=== PATIENT | female | born 2000 | race Caucasian/White ===

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

== ENCOUNTER 2018-01-19 20:14 | Emergency (ER) | payer OTHER ==
[~2018-01-19] VITALS: Wt 154.2 kg
[~2018-01-19 20:14] MED LIST changes: +FLUCONAZOLE100 MG PO
[2018-01-19 20:55] LABS: BILIRUBIN NEGATIVE (NEGATIVE); BLOOD NEGATIVE (NEGATIVE); CLARITY CLEAR (CLEAR); COLOR YELLOW (YELLOW); GLUCOSE NEGATIVE (NEGATIVE); KETONE TRACE (NEGATIVE); LEUKO ESTERASE NEGATIVE (NEGATIVE); NITRITE NEGATIVE (NEGATIVE); PH 5.5 (5.0-9.0); SPECIFIC GRAVITY 1.025 (1.005-1.030)
[2018-01-19 21:06] LABS: BACTERIA 2+; RBC 0-2 rbc/hpf (0-2)
== END 2018-01-19 22:20 | disposition home or self-care (01) ==
LOC: ED 20:14
PROVIDERS: Emergency Medicine
DX: N92.6 Irregular menstruation, unspecified (principal); N91.0 Primary amenorrhea; Z79.899 Other long term (current) drug therapy

== ENCOUNTER 2018-03-06 11:26 | Emergency (ER) | payer OTHER ==
[~2018-03-06] VITALS: Ht 167.6 cm; Wt 163.3 kg
[2018-03-06 11:53] LABS: BASO # 0.1 10*3/uL (0.0-0.1); EOS # 0.3 10*3/uL (0.0-0.4); EOS % 2.9 % (1.0-4.0); HEMATOCRIT 37.1 % (37.0-47.0); HEMOGLOBIN 11.7 g/dl (12.0-16.0); LYMPH # 2.3 10*3/uL (1.3-4.4); LYMPH % 25.9 % (27.0-41.0); MEAN CELL VOLUME 78.3 fl (81.0-99.0); MEAN CORPUSCULAR HGB 24.7 pg (27.0-31.0); MEAN CORPUSCULAR HGB CONC 31.5 g/dl (33.0-37.0); MONO # 0.5 10*3/uL (0.1-1.0); MONO % 5.2 % (3.0-9.0); NEUT # 5.9 10*3/uL (2.3-7.9); NEUT % 64.8 % (47.0-73.0); PLATELET COUNT AUTOMATED 292 10*3/uL (130-400); RED BLOOD COUNT 4.74 10*6/uL (4.10-5.10); RED CELL DISTRI WIDTH 14.5 % (0-14.5)
[2018-03-06 12:07] LABS: ALBUMIN 3.2 gm/dl (3.1-4.5); ALKALINE PHOSPHATASE 92 U/L (45-117); BUN 8 mg/dl (7-24); CHLORIDE 108 mmol/L (98-107); CREATININE 0.85 mg/dL (0.55-1.02); POTASSIUM 4.2 mmol/L (3.5-5.1); SGOT/AST 19 IU/L (3-35); SGPT/ALT 29 U/L (12-78); SODIUM 141 mmol/L (136-145)
[2018-03-06 12:09] LABS: ACETAMINOPHEN (TYLENOL) < 2.0 ug/ml (10-30); ETHYL ALCOHOL < 3.0 mg/dl (<3)
[2018-03-06 12:49] LABS: BILIRUBIN NEGATIVE (NEGATIVE); BLOOD TRACE-INTACT (NEGATIVE); CLARITY CLOUDY (CLEAR); COLOR YELLOW (YELLOW); GLUCOSE NEGATIVE (NEGATIVE); KETONE NEGATIVE (NEGATIVE); LEUKO ESTERASE 1+ (NEGATIVE); NITRITE POSITIVE (NEGATIVE); UROBILINOGEN 0.2 E.U./dl (0.2-1.0)
[2018-03-06 12:56] LABS: BACTERIA 3+; EPITHELIAL CELLS 21-30; MUCOUS 1+; WBC 21-30 wbc/hpf (0-5)
[2018-03-06 13:02] LABS: URINE AMPHETAMINES < 1000 (1000ng/ml); URINE BARBITURATES < 200 (200ng/ml); URINE BENZODIAZEPINES < 200 (200ng/ml); URINE CANNABINOIDS (THC) > 50 (50ng/ml); URINE COCAINE < 300 (300ng/ml); URINE METHADONE < 300 (300ng/ml); URINE OPIATES < 300 (300ng/ml)
[2018-03-06 13:09] LABS: URINE PHENCYCLIDINE < 25 (25ng/ml)
== END 2018-03-07 08:45 | disposition home health service (06) ==
LOC: ED 11:26
PROVIDERS: Nurse Practitioner Family
DX: R45.851 Suicidal ideations (principal); Z79.899 Other long term (current) drug therapy

== ENCOUNTER 2018-11-30 18:59 | Emergency (ER) | payer OTHER ==
[~2018-11-30] VITALS: Ht 170.1 cm; Wt 143.8 kg
[~2018-11-30 18:59] MED LIST changes: +DIFLUCAN150 MG PO; +ZITHROMAX250 MG PO
[2018-12-12] MEDS ORDERED: ZYRTEC10 MG PO (19:40)
[2018-12-12] MEDS ORDERED: ZITHROMAX250 MG PO (19:40)
[2018-12-12] MEDS ORDERED: FLONASE ALLERG9.9 ML NAS (19:40)
== END 2018-11-30 20:51 | disposition home or self-care (01) ==
LOC: ED 18:59
DX: R51 Headache (principal); H93.13 Tinnitus, bilateral; R53.83 Other fatigue; G40.909 Epilepsy, unspecified, not intractable, without status epilepticus; F17.200 Nicotine dependence, unspecified, uncomplicated; Z79.899 Other long term (current) drug therapy

== ENCOUNTER 2018-12-31 22:37 | Emergency (ER) | payer OTHER ==
[~2018-12-31] VITALS: Wt 143.8 kg
[~2018-12-31 22:37] MED LIST changes: +FLONASE ALLERG9.9 ML NAS; +ZYRTEC10 MG PO
[2018-12-31 23:08] LABS: BILIRUBIN NEGATIVE (NEGATIVE); BLOOD NEGATIVE (NEGATIVE); CLARITY SL CLOUDY (CLEAR); COLOR YELLOW (YELLOW); GLUCOSE NEGATIVE (NEGATIVE); KETONE NEGATIVE (NEGATIVE); LEUKO ESTERASE NEGATIVE (NEGATIVE); NITRITE NEGATIVE (NEGATIVE); SPECIFIC GRAVITY 1.025 (1.005-1.030); UROBILINOGEN 0.2 E.U./dl (0.2-1.0)
[2018-12-31 23:18] LABS: EPITHELIAL CELLS TNTC
== END 2019-01-01 00:02 | disposition home or self-care (01) ==
LOC: ED 22:37
PROVIDERS: Nurse Practitioner Family
DX: S93.402A Sprain of unspecified ligament of left ankle, initial encounter (principal); Z11.3 Encounter for screening for infections with a predominantly sexual mode of transmission; X50.1XXA Overexertion from prolonged static or awkward postures, initial encounter; Y93.89 Activity, other specified; Y92.89 Other specified places as the place of occurrence of the external cause; Y99.8 Other external cause status

== ENCOUNTER 2019-03-14 11:31 | Emergency (ER) | payer OTHER ==
[~2019-03-14] VITALS: Ht 167.6 cm; Wt 141.1 kg
[2019-03-14] MEDS ORDERED: ZITHROMAX250 MG PO (12:02)
== END 2019-03-14 12:05 | disposition home or self-care (01) ==
LOC: ED 11:31
DX: J02.9 Acute pharyngitis, unspecified (principal); R59.0 Localized enlarged lymph nodes; Z88.1 Allergy status to other antibiotic agents

== ENCOUNTER 2019-06-21 11:39 | Emergency (ER) | payer OTHER ==
[~2019-06-21] VITALS: Ht 170.1 cm; Wt 136.1 kg
[2019-06-21] MEDS ORDERED: IBUPROFEN600 MG PO (13:45)
== END 2019-06-21 13:46 | disposition home or self-care (01) ==
LOC: ED 11:39
DX: Z88.1 Allergy status to other antibiotic agents (principal); J06.9 Acute upper respiratory infection, unspecified

== ENCOUNTER 2019-07-15 07:44 | Emergency (ER) | payer OTHER ==
[~2019-07-15] VITALS: Ht 167.6 cm; Wt 137.4 kg
[~2019-07-15 07:44] MED LIST changes: +IBUPROFEN600 MG PO
== END 2019-07-15 08:30 | disposition home or self-care (01) ==
LOC: ED 07:44
DX: S21.219A Laceration without foreign body of unspecified back wall of thorax without penetration into thoracic cavity, initial encounter (principal); Z88.1 Allergy status to other antibiotic agents; W22.8XXA Striking against or struck by other objects, initial encounter; Y93.89 Activity, other specified; Y92.89 Other specified places as the place of occurrence of the external cause; Y99.8 Other external cause status

== ENCOUNTER 2019-09-21 18:12 | Emergency (ER) | payer OTHER ==
[~2019-09-21] VITALS: Ht 167.6 cm; Wt 131.5 kg
[~2019-09-21 18:12] MED LIST changes: +PYRIDIUM100 MG PO; +SEPTDS PO; +ZOFRAN4 MG PO
[2019-09-21 20:09] LABS: BILIRUBIN NEGATIVE (NEGATIVE); BLOOD NEGATIVE (NEGATIVE); CLARITY SL CLOUDY (CLEAR); COLOR YELLOW (YELLOW); GLUCOSE NEGATIVE (NEGATIVE); KETONE NEGATIVE (NEGATIVE); LEUKO ESTERASE NEGATIVE (NEGATIVE); NITRITE NEGATIVE (NEGATIVE); UROBILINOGEN 0.2 E.U./dl (0.2-1.0)
[2019-09-21 20:10] LABS: BACTERIA 1+
[2019-09-21] MEDS ORDERED: PRENATAL TABLE1 EAC2 PO (20:54)
[2019-09-21] MEDS ORDERED: MACROBID100 M1 PO (20:54)
== END 2019-09-21 21:02 | disposition home or self-care (01) ==
LOC: ED 18:12
PROVIDERS: Nurse Practitioner Family
DX: O23.91 Unspecified genitourinary tract infection in pregnancy, first trimester (principal); B96.89 Other specified bacterial agents as the cause of diseases classified elsewhere; Z3A.01 Less than 8 weeks gestation of pregnancy; Z32.01 Encounter for pregnancy test, result positive; Z88.1 Allergy status to other antibiotic agents

== ENCOUNTER 2020-07-25 20:08 | Emergency (ER) | payer OTHER ==
[~2020-07-25] VITALS: Wt 117.9 kg
[~2020-07-25 20:08] MED LIST changes: +MACROBID100 M1 PO; +PRENATAL TABLE1 EAC2 PO
[2020-07-25] MEDS ORDERED: ANTIFUNGAL113 GM T (20:58)
[2020-07-25 21:32] LABS: BILIRUBIN Negative (Negative); BLOOD Negative (Negative); CLARITY Clear (Clear); COLOR Yellow (Yellow); GLUCOSE Negative (Negative); KETONE Trace (Negative); LEUKO ESTERASE 2+ (Negative); NITRITE Negative (Negative); PH 5.5 (4.5-8.0)
[2020-07-25 21:59] LABS: BACTERIA TRACE
[2020-07-25] MEDS ORDERED: CEPHALEXIN500 M1 PO (22:05)
== END 2020-07-25 22:45 | disposition home or self-care (01) ==
LOC: ED 20:08
PROVIDERS: Physician Assistant
DX: O98.811 Other maternal infectious and parasitic diseases complicating pregnancy, first trimester (principal); O26.891 Other specified pregnancy related conditions, first trimester; R82.71 Bacteriuria; F41.9 Anxiety disorder, unspecified; F32.9 Major depressive disorder, single episode, unspecified; Z79.899 Other long term (current) drug therapy; Z88.8 Allergy status to other drugs, medicaments and biological substances; Z3A.01 Less than 8 weeks gestation of pregnancy

== ENCOUNTER 2020-10-22 16:47 | Emergency (ER) | payer OTHER ==
[~2020-10-22] VITALS: Ht 167.6 cm; Wt 117.5 kg
[~2020-10-22 16:47] MED LIST changes: +ANTIFUNGAL113 GM T; +CEPHALEXIN500 M1 PO
== END 2020-10-22 18:34 | disposition left against medical advice (07) ==
LOC: ED 16:47
DX: R10.9 Unspecified abdominal pain (principal); Z53.21 Procedure and treatment not carried out due to patient leaving prior to being seen by health care provider

== ENCOUNTER → 2020-11-29 | Outpatient (CLI) | payer OTHER ==
[2020-11-29 11:52] LABS: BASO # 0.1 10*3/uL (0.0-0.1); BASO % 0.5 % (0.0-1.0); EOS # 0.2 10*3/uL (0.0-0.4); EOS % 1.6 % (1.0-4.0); HEMATOCRIT 39.8 % (37.0-47.0); LYMPH # 2.6 10*3/uL (1.3-4.4); LYMPH % 23.7 % (27.0-41.0); MEAN CELL VOLUME 83.4 fl (81.0-99.0); MEAN CORPUSCULAR HGB 28.3 pg (27.0-31.0); MEAN CORPUSCULAR HGB CONC 33.9 g/dl (33.0-37.0); MEAN PLATELET VOLUME 9.2 fl (9.6-12.3); MONO # 0.5 10*3/uL (0.1-1.0); MONO % 4.7 % (3.0-9.0); NEUT # 7.6 10*3/uL (2.3-7.9); NEUT % 69.1 % (47.0-73.0); PLATELET COUNT AUTOMATED 231 10*3/uL (130-400); RED BLOOD COUNT 4.77 10*6/uL (4.10-5.10); RED CELL DISTRI WIDTH 13.5 % (0-14.5); WHITE BLOOD COUNT 10.9 10*3/uL (4.8-10.8)
[2020-11-29 12:22] LABS: URINE AMPHETAMINES < 1000 (1000ng/ml); URINE BARBITURATES < 200 (200ng/ml); URINE BENZODIAZEPINES < 200 (200ng/ml); URINE CANNABINOIDS (THC) > 50 (50ng/ml); URINE COCAINE < 300 (300ng/ml); URINE METHADONE < 300 (300ng/ml); URINE OPIATES < 300 (300ng/ml)
[2020-11-29 12:23] LABS: URINE PHENCYCLIDINE < 25 (25ng/ml)
[2020-11-30 07:07] LABS: HEP B CORE AB, IGM Negative (Negative); HEPATITIS B SURFACE AG Negative (Negative); HEPATITIS C VIRUS ANTIBODY <0.1 s/co (0.0-0.9)
== END | disposition home or self-care (01) ==
LOC: US 10:30 → LAB 10:38
PROVIDERS: ATTEND Nurse Practitioner Women's Health
DX: O99.212 Obesity complicating pregnancy, second trimester (principal); O26.812 Pregnancy related exhaustion and fatigue, second trimester; Z3A.15 15 weeks gestation of pregnancy

== ENCOUNTER 2021-01-22 14:35 | Emergency (ER) | payer OTHER ==
[~2021-01-22] VITALS: Ht 170.1 cm; Wt 120.2 kg
[2021-01-22 15:05] LABS: BASO % 0.3 % (0.0-1.0); EOS # 0.2 10*3/uL (0.0-0.4); EOS % 1.4 % (1.0-4.0); HEMATOCRIT 38.2 % (37.0-47.0); LYMPH # 1.9 10*3/uL (1.3-4.4); LYMPH % 13.9 % (27.0-41.0); MEAN CELL VOLUME 86.4 fl (81.0-99.0); MEAN CORPUSCULAR HGB 29.6 pg (27.0-31.0); MEAN CORPUSCULAR HGB CONC 34.3 g/dl (33.0-37.0); MONO # 0.6 10*3/uL (0.1-1.0); MONO % 4.2 % (3.0-9.0); NEUT # 10.7 10*3/uL (2.3-7.9); NEUT % 79.8 % (47.0-73.0); PLATELET COUNT AUTOMATED 221 10*3/uL (130-400); RED BLOOD COUNT 4.42 10*6/uL (4.10-5.10); RED CELL DISTRI WIDTH 13.5 % (0-14.5); WHITE BLOOD COUNT 13.4 10*3/uL (4.8-10.8)
[2021-01-22 15:21] LABS: ALBUMIN 2.6 gm/dl (3.1-4.5); ALKALINE PHOSPHATASE 79 U/L (45-117); BUN 7 mg/dl (7-24); CHLORIDE 107 mmol/L (98-107); CREATININE 0.54 mg/dL (0.55-1.02); LIPASE 110 U/L (73-393); POTASSIUM 4.4 mmol/L (3.5-5.1); SGOT/AST 10 IU/L (3-35); SGPT/ALT 17 U/L (12-78); SODIUM 137 mmol/L (136-145)
[2021-01-22 15:46] LABS: BILIRUBIN Negative (Negative); BLOOD Negative (Negative); CLARITY Cloudy (Clear); COLOR Yellow (Yellow); GLUCOSE Negative (Negative); KETONE Negative (Negative); LEUKO ESTERASE Trace (Negative); NITRITE Negative (Negative); PH 7.5 (4.5-8.0); UROBILINOGEN 0.2 E.U./dl (0.0-1.0)
[2021-01-22 15:55] LABS: EPITHELIAL CELLS TNTC
[2021-01-22 15:56] LABS: BACTERIA 1+
== END 2021-01-22 18:06 | disposition home or self-care (01) ==
LOC: ED 14:35
PROVIDERS: Emergency Medicine
DX: O26.892 Other specified pregnancy related conditions, second trimester (principal); R42 Dizziness and giddiness; Z3A.23 23 weeks gestation of pregnancy; Z88.8 Allergy status to other drugs, medicaments and biological substances; Z79.899 Other long term (current) drug therapy

== ENCOUNTER 2021-01-23 07:36 | Emergency (ER) | payer OTHER ==
[~2021-01-23] VITALS: Ht 167.6 cm; Wt 116.1 kg
[2021-01-23 08:02] LABS: BASO # 0.1 10*3/uL (0.0-0.1); BASO % 0.4 % (0.0-1.0); EOS # 0.1 10*3/uL (0.0-0.4); HEMATOCRIT 36.7 % (37.0-47.0); LYMPH # 2.1 10*3/uL (1.3-4.4); LYMPH % 15.4 % (27.0-41.0); MEAN CELL VOLUME 86.6 fl (81.0-99.0); MEAN CORPUSCULAR HGB CONC 34.6 g/dl (33.0-37.0); MEAN PLATELET VOLUME 9.1 fl (9.6-12.3); MONO # 0.6 10*3/uL (0.1-1.0); NEUT # 10.9 10*3/uL (2.3-7.9); NEUT % 78.7 % (47.0-73.0); PLATELET COUNT AUTOMATED 211 10*3/uL (130-400); RED BLOOD COUNT 4.24 10*6/uL (4.10-5.10); RED CELL DISTRI WIDTH 13.5 % (0-14.5); WHITE BLOOD COUNT 13.9 10*3/uL (4.8-10.8)
[2021-01-23 08:16] LABS: ALBUMIN 2.6 gm/dl (3.1-4.5); ALKALINE PHOSPHATASE 77 U/L (45-117); BUN 6 mg/dl (7-24); CHLORIDE 108 mmol/L (98-107); CREATININE 0.52 mg/dL (0.55-1.02); LIPASE 89 U/L (73-393); SGOT/AST 11 IU/L (3-35); SGPT/ALT 18 U/L (12-78); SODIUM 137 mmol/L (136-145); TOTAL PROTEIN 6.8 gm/dL (6.4-8.2)
== END 2021-01-23 10:32 | disposition home or self-care (01) ==
LOC: ED 07:36
PROVIDERS: Emergency Medicine
DX: O26.892 Other specified pregnancy related conditions, second trimester (principal); R51.9 Headache, unspecified; R11.0 Nausea; Z79.899 Other long term (current) drug therapy; Z88.1 Allergy status to other antibiotic agents; Z3A.23 23 weeks gestation of pregnancy

== ENCOUNTER 2021-04-14 14:15 | Emergency (ER) | payer OTHER ==
[~2021-04-14] VITALS: Ht 167.6 cm; Wt 128.4 kg
== END 2021-04-14 14:50 | disposition home or self-care (01) ==
LOC: ED 14:15
DX: O99.713 Diseases of the skin and subcutaneous tissue complicating pregnancy, third trimester (principal); S90.862A Insect bite (nonvenomous), left foot, initial encounter; Z88.1 Allergy status to other antibiotic agents; Z79.899 Other long term (current) drug therapy; Z79.2 Long term (current) use of antibiotics; Z3A.35 35 weeks gestation of pregnancy; W57.XXXA Bitten or stung by nonvenomous insect and other nonvenomous arthropods, initial encounter; Y93.89 Activity, other specified; Y92.89 Other specified places as the place of occurrence of the external cause; Y99.8 Other external cause status

== ENCOUNTER 2021-09-28 23:03 | Emergency (ER) | payer OTHER ==
[~2021-09-28] VITALS: Ht 167.6 cm; Wt 136.1 kg
== END 2021-09-29 00:32 | disposition home or self-care (01) ==
LOC: ED 23:03
DX: M79.671 Pain in right foot (principal); Z88.1 Allergy status to other antibiotic agents

== ENCOUNTER 2022-03-12 15:23 | Emergency (ER) | payer OTHER ==
[~2022-03-12] VITALS: Wt 131.5 kg
[2022-03-12] MEDS ORDERED: VIBRAMYCIN100 MG PO (16:07)
== END 2022-03-12 16:26 | disposition home or self-care (01) ==
LOC: ED 15:23
DX: S40.862A Insect bite (nonvenomous) of left upper arm, initial encounter (principal); Z88.1 Allergy status to other antibiotic agents; W57.XXXA Bitten or stung by nonvenomous insect and other nonvenomous arthropods, initial encounter; Y93.89 Activity, other specified; Y92.89 Other specified places as the place of occurrence of the external cause; Y99.8 Other external cause status

== ENCOUNTER 2022-04-19 01:17 | Emergency (ER) | payer OTHER ==
[~2022-04-19] VITALS: Ht 175.2 cm; Wt 117.9 kg
[~2022-04-19 01:17] MED LIST changes: +VIBRAMYCIN100 MG PO
[2022-04-19] MEDS ORDERED: IBU800 M2 PO (01:35)
== END 2022-04-19 01:38 | disposition home or self-care (01) ==
LOC: ED 01:17
DX: R07.89 Other chest pain (principal); Z88.1 Allergy status to other antibiotic agents; Z79.2 Long term (current) use of antibiotics

== ENCOUNTER 2022-06-02 19:31 | Emergency (ER) | payer OTHER ==
[~2022-06-02 19:31] MED LIST changes: +IBU800 M2 PO
== END 2022-06-02 21:09 | disposition left against medical advice (07) ==
LOC: ED 19:31
DX: M54.2 Cervicalgia (principal); M54.9 Dorsalgia, unspecified; R51.9 Headache, unspecified; Z53.21 Procedure and treatment not carried out due to patient leaving prior to being seen by health care provider

== ENCOUNTER 2022-07-19 15:44 | Emergency (ER) | payer OTHER ==
[2022-07-19] MEDS ORDERED: TYLENOL EXTRA500 MG PO (17:14)
[2022-07-19 17:37] LABS: BILIRUBIN Negative (Negative); BLOOD Negative (Negative); CLARITY Cloudy (Clear); COLOR Yellow (Yellow); GLUCOSE Negative (Negative); KETONE Trace (Negative); LEUKO ESTERASE 1+ (Negative); NITRITE Negative (Negative); PH 5.5 (4.5-8.0); SPECIFIC GRAVITY 1.025 (1.001-1.030); UROBILINOGEN 0.2 E.U./dl (0.0-1.0)
[2022-07-19 18:12] LABS: BACTERIA 3+; EPITHELIAL CELLS TNTC
== END 2022-07-19 17:21 | disposition home or self-care (01) ==
LOC: ED 15:44
PROVIDERS: Nurse Practitioner Family
DX: O9A.211 Injury, poisoning and certain other consequences of external causes complicating pregnancy, first trimester (principal); S39.012A Strain of muscle, fascia and tendon of lower back, initial encounter; Z88.1 Allergy status to other antibiotic agents; Z79.2 Long term (current) use of antibiotics; Z79.899 Other long term (current) drug therapy; Z3A.01 Less than 8 weeks gestation of pregnancy

== ENCOUNTER 2022-09-25 11:12 | Emergency (ER) | payer OTHER ==
[~2022-09-25] VITALS: Wt 136.1 kg
[~2022-09-25 11:12] MED LIST changes: +TYLENOL EXTRA500 MG PO
== END 2022-09-25 14:08 | disposition home or self-care (01) ==
LOC: ED 11:12
DX: O26.891 Other specified pregnancy related conditions, first trimester (principal); S16.1XXA Strain of muscle, fascia and tendon at neck level, initial encounter; Z3A.01 Less than 8 weeks gestation of pregnancy; Z88.1 Allergy status to other antibiotic agents; X58.XXXA Exposure to other specified factors, initial encounter; Y93.89 Activity, other specified; Y92.89 Other specified places as the place of occurrence of the external cause; Y99.8 Other external cause status

== ENCOUNTER 2022-11-20 22:01 | Emergency (ER) | payer OTHER ==
[2022-11-20] MEDS ORDERED: PRENATAL VITAM1 EAC4 PO (22:11)
[2022-11-20] MEDS ORDERED: CLEOCIN HCL300 MG PO (23:46)
== END 2022-11-21 00:01 | disposition home or self-care (01) ==
LOC: ED 22:01
DX: O26.891 Other specified pregnancy related conditions, first trimester (principal); K04.7 Periapical abscess without sinus; K08.89 Other specified disorders of teeth and supporting structures; F41.9 Anxiety disorder, unspecified; F32.A Depression, unspecified; Z88.1 Allergy status to other antibiotic agents; Z3A.15 15 weeks gestation of pregnancy

== ENCOUNTER 2023-01-09 14:57 | Emergency (ER) | payer OTHER ==
[~2023-01-09] VITALS: Ht 165.1 cm; Wt 123.8 kg
[~2023-01-09 14:57] MED LIST changes: +CLEOCIN HCL300 MG PO; +PRENATAL VITAM1 EAC4 PO
[2023-01-09 15:44] LABS: BASO # 0.1 10*3/uL (0.0-0.1); BASO % 0.4 % (0.0-1.0); EOS % 0.2 % (1.0-4.0); HEMATOCRIT 39.8 % (37.0-47.0); LYMPH # 0.8 10*3/uL (1.3-4.4); MEAN CELL VOLUME 83.6 fl (81.0-99.0); MEAN CORPUSCULAR HGB 29.2 pg (27.0-31.0); MEAN CORPUSCULAR HGB CONC 34.9 g/dl (33.0-37.0); MEAN PLATELET VOLUME 9.1 fl (9.6-12.3); MONO # 0.4 10*3/uL (0.1-1.0); MONO % 3.1 % (3.0-9.0); NEUT # 10.7 10*3/uL (2.3-7.9); NEUT % 88.8 % (47.0-73.0); PLATELET COUNT AUTOMATED 204 10*3/uL (130-400); RED BLOOD COUNT 4.76 10*6/uL (4.10-5.10); RED CELL DISTRI WIDTH 14.2 % (0-14.5); WHITE BLOOD COUNT 12.1 10*3/uL (4.8-10.8)
[2023-01-09 16:14] LABS: BILIRUBIN Negative (Negative); BLOOD Negative (Negative); CLARITY Cloudy (Clear); COLOR Yellow (Yellow); GLUCOSE Negative (Negative); KETONE 4+ (Negative); LEUKO ESTERASE Trace (Negative); NITRITE Negative (Negative); UROBILINOGEN 0.2 E.U./dl (0.0-1.0)
[2023-01-09 16:21] LABS: BACTERIA 2+
[2023-01-09 16:25] LABS: ALKALINE PHOSPHATASE 81 U/L (46-116); CHLORIDE 107 mmol/L (98-107); LIPASE 28 U/L (12-53); POTASSIUM 3.8 mmol/L (3.4-5.1); SGPT/ALT 32 U/L (10-49); TOTAL PROTEIN 6.8 gm/dL (6.0-8.0)
[2023-01-09 16:33] LABS: BUN < 5 mg/dl (9-23)
[2023-01-09] MEDS ORDERED: MACROBID100 M1 PO (16:58)
== END 2023-01-09 18:15 | disposition home or self-care (01) ==
LOC: ED 14:57
PROVIDERS: Physician Assistant
DX: O26.892 Other specified pregnancy related conditions, second trimester (principal); R82.71 Bacteriuria; F41.9 Anxiety disorder, unspecified; F32.A Depression, unspecified; F90.9 Attention-deficit hyperactivity disorder, unspecified type; Z88.1 Allergy status to other antibiotic agents; Z3A.22 22 weeks gestation of pregnancy

== ENCOUNTER 2023-06-05 19:38 | Emergency (ER) | payer OTHER ==
[~2023-06-05] VITALS: Ht 167.6 cm; Wt 117.9 kg
[2023-06-05 20:28] LABS: BASO # 0.1 10*3/uL (0.0-0.1); EOS # 0.1 10*3/uL (0.0-0.4); EOS % 2.1 % (1.0-4.0); HEMATOCRIT 34.6 % (37.0-47.0); LYMPH # 2.1 10*3/uL (1.3-4.4); LYMPH % 30.1 % (27.0-41.0); MEAN CELL VOLUME 83.4 fl (81.0-99.0); MEAN CORPUSCULAR HGB 28.4 pg (27.0-31.0); MEAN CORPUSCULAR HGB CONC 34.1 g/dl (33.0-37.0); MEAN PLATELET VOLUME 9.2 fl (9.6-12.3); MONO # 0.4 10*3/uL (0.1-1.0); MONO % 5.4 % (3.0-9.0); NEUT # 4.2 10*3/uL (2.3-7.9); NEUT % 61.3 % (47.0-73.0); PLATELET COUNT AUTOMATED 272 10*3/uL (130-400); RED BLOOD COUNT 4.15 10*6/uL (4.10-5.10); RED CELL DISTRI WIDTH 12.5 % (0-14.5); WHITE BLOOD COUNT 6.8 10*3/uL (4.8-10.8)
[2023-06-05 20:45] LABS: ACT PARTIAL THROMBO TIME 25.6 SECONDS (20.0-32.1)
[2023-06-05 20:56] LABS: ALKALINE PHOSPHATASE 90 U/L (46-116); BUN 18 mg/dl (9-23); CHLORIDE 108 mmol/L (98-107); POTASSIUM 3.6 mmol/L (3.4-5.1); SGPT/ALT 12 U/L (10-49); TOTAL PROTEIN 6.5 gm/dL (6.0-8.0)
== END 2023-06-05 21:38 | disposition home or self-care (01) ==
LOC: ED 19:38
PROVIDERS: Nurse Practitioner
DX: O90.89 Other complications of the puerperium, not elsewhere classified (principal); R79.1 Abnormal coagulation profile; M79.662 Pain in left lower leg; R22.42 Localized swelling, mass and lump, left lower limb; Z88.1 Allergy status to other antibiotic agents; Z79.2 Long term (current) use of antibiotics; Z79.899 Other long term (current) drug therapy

== ENCOUNTER 2023-06-08 11:46 | Emergency (ER) | payer OTHER ==
[~2023-06-08] VITALS: Ht 167.6 cm; Wt 122.0 kg
== END 2023-06-08 13:38 | disposition home or self-care (01) ==
LOC: ED 11:46
DX: M79.662 Pain in left lower leg (principal); F41.9 Anxiety disorder, unspecified; F32.A Depression, unspecified; F90.9 Attention-deficit hyperactivity disorder, unspecified type; Z88.1 Allergy status to other antibiotic agents; Z86.718 Personal history of other venous thrombosis and embolism

== ENCOUNTER 2023-08-17 12:46 | Emergency (ER) | payer OTHER ==
[~2023-08-17] VITALS: Ht 167.6 cm; Wt 127.0 kg
[2023-08-17 13:55] LABS: BASO % 0.4 % (0.0-1.0); EOS # 0.1 10*3/uL (0.0-0.4); EOS % 1.1 % (1.0-4.0); HEMATOCRIT 43.5 % (37.0-47.0); LYMPH # 1.4 10*3/uL (1.3-4.4); LYMPH % 16.4 % (27.0-41.0); MEAN CELL VOLUME 77.7 fl (81.0-99.0); MEAN CORPUSCULAR HGB 23.4 pg (27.0-31.0); MEAN CORPUSCULAR HGB CONC 30.1 g/dl (33.0-37.0); MEAN PLATELET VOLUME 8.9 fl (9.6-12.3); MONO # 0.3 10*3/uL (0.1-1.0); MONO % 3.4 % (3.0-9.0); NEUT # 6.6 10*3/uL (2.3-7.9); NEUT % 78.5 % (47.0-73.0); PLATELET COUNT AUTOMATED 249 10*3/uL (130-400); RED CELL DISTRI WIDTH 13.8 % (0-14.5); WHITE BLOOD COUNT 8.4 10*3/uL (4.8-10.8)
[2023-08-17 14:20] LABS: ALKALINE PHOSPHATASE 91 U/L (46-116); BUN 13 mg/dl (9-23); CHLORIDE 109 mmol/L (98-107); CPK 77 U/L (34-171); LIPASE 33 U/L (12-53); POTASSIUM 3.8 mmol/L (3.4-5.1); SGPT/ALT 27 U/L (5-49); TOTAL PROTEIN 7.4 gm/dL (6.0-8.0)
[2023-08-17 14:21] LABS: ACT PARTIAL THROMBO TIME 26.8 SECONDS (20.0-32.1)
[2023-08-17 14:22] LABS: ETHYL ALCOHOL < 3.0 mg/dl (<3)
[2023-08-17 15:52] LABS: BILIRUBIN Negative (Negative); BLOOD Negative (Negative); CLARITY Cloudy (Clear); COLOR Yellow (Yellow); GLUCOSE Negative (Negative); KETONE Negative (Negative); LEUKO ESTERASE Negative (Negative); NITRITE Negative (Negative); PH 5.5 (4.5-8.0); SPECIFIC GRAVITY >= 1.030 (1.001-1.030); UROBILINOGEN 0.2 E.U./dl (0.0-1.0)
[2023-08-17 15:59] LABS: URINE AMPHETAMINES Negative (1000ng/ml); URINE BARBITURATES Negative (200ng/ml); URINE BENZODIAZEPINES Negative (200ng/ml); URINE CANNABINOIDS (THC) Positive (50ng/ml); URINE COCAINE Negative (300ng/ml); URINE METHADONE Negative (300ng/ml); URINE OPIATES Negative (300ng/ml); URINE PHENCYCLIDINE Negative (25ng/ml)
[2023-08-17 16:08] LABS: BACTERIA 4+
[2023-08-17 17:43] LABS: B-hCG (QUALITATIVE) NEGATIVE (NEGATIVE)
[2023-08-17] MEDS ORDERED: ONDANSETRON4 MG SL (17:48)
[2023-08-17] MEDS ORDERED: OMNICEF300 MG PO (17:48)
== END 2023-08-17 17:48 | disposition home or self-care (01) ==
LOC: ED 12:46
PROVIDERS: Family Medicine
DX: N39.0 Urinary tract infection, site not specified (principal); F41.9 Anxiety disorder, unspecified; F32.A Depression, unspecified; F90.9 Attention-deficit hyperactivity disorder, unspecified type; Z88.1 Allergy status to other antibiotic agents; Z20.822 Contact with and (suspected) exposure to COVID-19; R10.2 Pelvic and perineal pain

== ENCOUNTER 2023-10-04 23:38 | Emergency (ER) | payer OTHER ==
[~2023-10-04] VITALS: Wt 146.5 kg
[~2023-10-04 23:38] MED LIST changes: +OMNICEF300 MG PO; +ONDANSETRON4 MG SL
[2023-10-05 00:27] LABS: ALKALINE PHOSPHATASE 91 U/L (46-116); BUN 13 mg/dl (9-23); CHLORIDE 110 mmol/L (98-107); POTASSIUM 3.9 mmol/L (3.4-5.1); SGPT/ALT 15 U/L (5-49)
[2023-10-05 00:28] LABS: ETHYL ALCOHOL < 3.0 mg/dl (<3)
[2023-10-05 01:16] LABS: BILIRUBIN Negative (Negative); BLOOD Negative (Negative); CLARITY Cloudy (Clear); COLOR Yellow (Yellow); GLUCOSE Negative (Negative); KETONE Negative (Negative); LEUKO ESTERASE Negative (Negative); NITRITE Negative (Negative); PH 5.5 (4.5-8.0); SPECIFIC GRAVITY 1.025 (1.001-1.030); UROBILINOGEN 0.2 E.U./dl (0.0-1.0)
[2023-10-05 01:23] LABS: URINE AMPHETAMINES Negative (1000ng/ml); URINE BARBITURATES Negative (200ng/ml); URINE BENZODIAZEPINES Negative (200ng/ml); URINE CANNABINOIDS (THC) Positive (50ng/ml); URINE COCAINE Negative (300ng/ml); URINE METHADONE Negative (300ng/ml); URINE OPIATES Negative (300ng/ml); URINE PHENCYCLIDINE Negative (25ng/ml)
[2023-10-05 02:08] LABS: BACTERIA 1+; EPITHELIAL CELLS 41-50
== END 2023-10-05 02:40 | disposition home or self-care (01) ==
LOC: ED 23:38
PROVIDERS: Internal Medicine
DX: R56.9 Unspecified convulsions (principal); F41.9 Anxiety disorder, unspecified; F32.A Depression, unspecified; F90.9 Attention-deficit hyperactivity disorder, unspecified type; Z88.1 Allergy status to other antibiotic agents

== ENCOUNTER 2023-10-08 22:35 | Emergency (ER) | payer OTHER ==
[~2023-10-08] VITALS: Ht 167.6 cm; Wt 122.5 kg
[2023-10-08] MEDS ORDERED: AMOXICILLIN500 M2 PO (23:51)
[2023-10-08] MEDS ORDERED: Acetaminophen/Hydrocodone 5 MG/325 MG TABLET PO ONE (23:55)
[2023-10-08] MEDS ORDERED: AMOXICILLIN 500 MG CAP PO ONE (23:55)
== END 2023-10-08 23:53 | disposition home or self-care (01) ==
LOC: ED 22:35
DX: K04.7 Periapical abscess without sinus (principal); Z88.1 Allergy status to other antibiotic agents; Z79.2 Long term (current) use of antibiotics; Z79.899 Other long term (current) drug therapy

== ENCOUNTER 2023-10-23 18:49 | Emergency (ER) | payer OTHER ==
[~2023-10-23] VITALS: Ht 167.6 cm; Wt 127.0 kg
[~2023-10-23 18:49] MED LIST changes: +AMOXICILLIN500 M2 PO
[2023-10-23] MEDS ORDERED: AMOX-CLAV 875-1 EACH PO (19:29)
[2023-10-23] MEDS ORDERED: Amoxicillin/Clavulanate Pota 875 MG TAB PO ONE (19:30)
== END 2023-10-23 19:34 | disposition home or self-care (01) ==
LOC: ED 18:49
DX: K04.7 Periapical abscess without sinus (principal); K02.9 Dental caries, unspecified; F41.9 Anxiety disorder, unspecified; F32.A Depression, unspecified; F90.9 Attention-deficit hyperactivity disorder, unspecified type; F17.210 Nicotine dependence, cigarettes, uncomplicated

== ENCOUNTER 2024-01-30 18:44 | Emergency (ER) | payer OTHER ==
[~2024-01-30] VITALS: Ht 167.6 cm; Wt 145.1 kg
[~2024-01-30 18:44] MED LIST changes: +AMOX-CLAV 875-1 EACH PO
[2024-01-30] MEDS ORDERED: CLINDAMYCIN HC300 MG PO (19:16)
[2024-01-30] MEDS ORDERED: Motrin,Rufen800 MG PO (19:16)
[2024-01-30] MEDS ORDERED: IBUPROFEN 800 MG TAB PO ONE (19:20)
[2024-01-30] MEDS ORDERED: CLINDAMYCIN HCL 300 MG CAPSULE PO ONE (19:20)
== END 2024-01-30 20:08 | disposition home or self-care (01) ==
LOC: ED 18:44
DX: K04.7 Periapical abscess without sinus (principal); G89.29 Other chronic pain; K08.89 Other specified disorders of teeth and supporting structures; F41.9 Anxiety disorder, unspecified; F32.A Depression, unspecified; F90.9 Attention-deficit hyperactivity disorder, unspecified type

== ENCOUNTER 2024-07-03 19:41 | Emergency (ER) | payer OTHER ==
[~2024-07-03] VITALS: Ht 167.6 cm; Wt 136.1 kg
[~2024-07-03 19:41] MED LIST changes: +ASPERCREME LID1 EACH T; +CLINDAMYCIN HC300 MG PO; +IBUPROFEN400 MG PO; +Ondansetron4 MG PO
[2024-07-03 21:13] LABS: BASO # 0.1 10*3/uL (0.0-0.1); BASO % 0.7 % (0.0-1.0); EOS # 0.4 10*3/uL (0.0-0.4); EOS % 3.8 % (1.0-4.0); HEMATOCRIT 41.9 % (37.0-47.0); LYMPH % 28.7 % (27.0-41.0); MEAN CORPUSCULAR HGB 25.1 pg (27.0-31.0); MEAN PLATELET VOLUME 9.4 fl (9.6-12.3); MONO # 0.5 10*3/uL (0.1-1.0); MONO % 4.3 % (3.0-9.0); NEUT # 6.5 10*3/uL (2.3-7.9); NEUT % 62.2 % (47.0-73.0); PLATELET COUNT AUTOMATED 278 10*3/uL (130-400); RED BLOOD COUNT 5.17 10*6/uL (4.10-5.10); RED CELL DISTRI WIDTH 14.2 % (0-14.5); WHITE BLOOD COUNT 10.4 10*3/uL (4.8-10.8)
[2024-07-03 21:23] LABS: ACT PARTIAL THROMBO TIME 27.3 SECONDS (20.0-32.1)
[2024-07-03 21:33] LABS: ALKALINE PHOSPHATASE 75 U/L (46-116); BUN 8 mg/dl (9-23); CHLORIDE 109 mmol/L (98-107); CPK 72 U/L (34-171); POTASSIUM 3.5 mmol/L (3.4-5.1); SGPT/ALT 14 U/L (5-49); TOTAL PROTEIN 7.4 gm/dL (6.0-8.0)
[2024-07-03 21:45] LABS: BILIRUBIN Negative (Negative); BLOOD Negative (Negative); CLARITY Clear (Clear); COLOR Yellow (Yellow); GLUCOSE Negative (Negative); KETONE Negative (Negative); LEUKO ESTERASE Negative (Negative); NITRITE Negative (Negative); PH 5.5 (4.5-8.0); SPECIFIC GRAVITY 1.015 (1.001-1.030); UROBILINOGEN 0.2 E.U./dl (0.0-1.0)
[2024-07-03 22:06] LABS: MUCOUS TRACE; RBC 0-2 rbc/hpf (0-2); WBC 0-2 wbc/hpf (0-5)
== END 2024-07-04 02:06 | disposition home or self-care (01) ==
LOC: ED 19:41
PROVIDERS: Emergency Medicine
DX: R20.2 Paresthesia of skin (principal); F41.9 Anxiety disorder, unspecified; F32.A Depression, unspecified; F90.9 Attention-deficit hyperactivity disorder, unspecified type; R10.2 Pelvic and perineal pain

== ENCOUNTER 2024-07-31 13:12 | Emergency (ER) | payer OTHER ==
[~2024-07-31] VITALS: Ht 167.6 cm; Wt 133.8 kg
[2024-07-31] MEDS ORDERED: NAPROSYN500 MG PO (14:07)
[2024-07-31] MEDS ORDERED: PENICILLIN VK500 MG PO (14:07)
[2024-07-31] MEDS ORDERED: PENICILLIN V POTASSIUM 500 MG TAB PO ONE (14:10)
[2024-07-31] MEDS ORDERED: Ketorolac Tromethamine 30 MG/ML VIAL IM ONE (14:10)
== END 2024-07-31 14:10 | disposition home or self-care (01) ==
LOC: ED 13:12
DX: K04.7 Periapical abscess without sinus (principal); F41.9 Anxiety disorder, unspecified; F32.A Depression, unspecified; F90.9 Attention-deficit hyperactivity disorder, unspecified type

== ENCOUNTER 2025-02-09 11:12 | Emergency (ER) | payer OTHER ==
[~2025-02-09 11:12] MED LIST changes: +NAPROSYN500 MG PO; +PENICILLIN VK500 MG PO
[2025-02-09] MEDS ORDERED: Acetaminophen/Oxycodone 5 MG/325 MG TABLET PO ONE (11:30)
[2025-02-09] MEDS ORDERED: PENICILLIN V POTASSIUM 500 MG TAB PO ONE (11:30)
[2025-02-09] MEDS ORDERED: Ketorolac Tromethamine 60 MG/2 ML VIAL IM ONE (11:30)
== END 2025-02-09 11:45 | disposition home or self-care (01) ==
LOC: ED 11:12
DX: K02.9 Dental caries, unspecified (principal); F32.A Depression, unspecified; F41.9 Anxiety disorder, unspecified; Z79.899 Other long term (current) drug therapy